=== PATIENT | female | born 1995 | race Caucasian/White ===

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

== ENCOUNTER 2017-04-27 00:26 | Emergency (ER) | payer OTHER ==
[~2017-04-27] VITALS: Ht 157.5 cm; Wt 52.6 kg
[~2017-04-27 00:26] MED LIST changes: +BENTYL10 M1 PO; +ZOFRAN ODT4 M1 PO
--- NOTE | 2017-04-27 00:55 | ED AMS/SEIZURE/WEAK/DIZZY ---
History of Present Illness General Chief Complaint: Dizziness Stated Complaint: DIZZINESS Source: patient, family Exam Limitations: no limitations Vital Signs & Intake/Output Vital Signs & Intake/Output Vital Signs Date Time Temp Pulse Resp B/P B/P Pulse O2 O2 Flow FiO2 Mean Ox Delivery Rate 04/27 0058 98.2 96 16 107/74 98 Room Air Room Air Allergies Coded Allergies: gluten (Intermediate, ABD CRAMPING 04/27/17) Reconcile Medications Dicyclomine Hydrochloride (Bentyl) 10 MG CAPSULE 1 CAP PO TID PRN SPASM Omeprazole Magnesium (Prilosec Otc) 20 MG TABLET.DR 1 TAB PO DAILY stomach burning Ondansetron (Zofran Odt) 4 MG TAB.RAPDIS 1 TAB PO Q6 PRN NAUSEA Ondansetron (Zofran Odt) 4 MG TAB.RAPDIS 1 TAB SL TID PRN nausea Triage Nurses Notes Reviewed? yes Onset: Gradual Duration: hour(s): Timing: recent history Injury Environment: home Severity: mild, moderate Modifying Factors: Improves With: rest. Associated Symptoms: dizziness : No Patient currently breastfeeds: No HPI: 22 yo woman presents with dizziness, nausea, weakness that started this evening. Her mother shares that she had her wisdom teeth removed earlier today. She had been NPO since yesterday. The surgery was uneventful. She was unable to eat during the day. Per mom, "She would just pick at her food." She notes mild nausea, dizziness, weakness, and "not feeling well." She is able to open her mouth. She had had no vomiting, diarrhea, chest pain, fever, chills, dysuria. She is otherwise well. Past History Travel History Traveled to [place] past 21 day No Medical History Any Pertinent Medical History? see below for history Neurological: NONE EENT: NONE Cardiovascular: NONE Respiratory: SEASONAL ALLERGIES Gastrointestinal: NONE Hepatic: NONE Renal: NONE Musculoskeletal: NONE Psychiatric: NONE Endocrine: NONE Blood Disorders: ITP Cancer(s): NONE BACK JOINER/Reproductive: NONE History of MRSA: No History of VRE: No History of CDIFF: No Surgical History Surgical History: N Psychosocial History What is your primary language Turkish Tobacco Use: Never used ETOH Use: denies use Illicit Drug Use: denies illicit drug use Family History Family History, If Any: SISTER (PANIC ATTACKS). UNCLE (STAGE 4 COLN CANCER). Hx Contributory? No Review of Systems Review of Systems Constitutional: Reports: no symptoms. EENTM: Reports: no symptoms. Respiratory: Reports: no symptoms. Cardiovascular: Reports: no symptoms. GI: Reports: no symptoms. Genitourinary: Reports: no symptoms. Musculoskeletal: Reports: no symptoms. Skin: Reports: no symptoms. Neurological/Psychological: Reports: no symptoms. Hematologic/Endocrine: Reports: no symptoms. Immunologic/Allergic: Reports: no symptoms. All Other Systems: Reviewed and Negative Physical Exam Physical Exam General Appearance: well developed/nourished, mild distress Head: atraumatic, normal appearance Eyes: Bilateral: normal appearance. Ears, Nose, Throat: slightly dry mucosa, pt with pain in opening mouth, otherwise benign. oral surgical site difficulty to visualize. Neck: normal inspection, supple, full range of motion Respiratory: normal breath sounds, chest non-tender, no respiratory distress, quiet respiration, lungs clear Cardiovascular: regular rate/rhythm Gastrointestinal: mild mid epigastric tenderness to palpation Back: normal inspection Extremities: normal range of motion Neurologic/Psych: no motor/sensory deficits, awake, alert, oriented x 3 Core Measures ACS in differential dx? No CVA/TIA Diagnosis No Sepsis Present: No Sepsis Focused Exam Completed? No Progress Differential Diagnosis: dehydration vs other Plan of Care: Orders Procedure Date/time Status LIPASE 04/27 55 Complete HEPATIC FUNCTION PANEL 04/27 55 Complete HUMAN BETA HCG SCREEN 04/27 55 Complete CBC WITHOUT DIFFERENTIAL 04/27 55 Complete BASIC METABOLIC PANEL 04/27 55 Complete AMYLASE 04/27 55 Complete Laboratory Tests 04/27/17 0211: Anion Gap 12, Estimated GFR > 60, BUN/Creatinine Ratio 12.9, Glucose 102 H, Calcium 9.7, Total Bilirubin 2.5 H, Direct Bilirubin 0.4, AST 21, ALT 31, Alkaline Phosphatase 66, Total Protein 7.4, Albumin 4.5, Amylase 37, Lipase 67, Total Beta HCG NEGATIVE, CBC w Diff MAN DIFF ORDERED, RBC 4.83, MCV 85.4, MCH 29.4, RDW 12.2, MPV 8.4, Gran % 87.2 H, Lymphocytes % 7.7 L, Monocytes % 4.6, Eosinophils % 0.5, Basophils % 0, Absolute Granulocytes 12.8 H, Segmented Neutrophils 90 H, Band Neutrophils 1, Absolute Lymphocytes 1.1 L, Lymphocytes 5 L, Monocytes 4, Absolute Monocytes 0.7 H, Absolute Eosinophils 0.1, Absolute Basophils 0, Platelet Estimate ADEQUATE, Normocytic RBCs VERIFIED, Normochromic RBCs VERIFIED, PUBS MCHC 34.4 Initial ED EKG: none Departure Departure Disposition: HOME OR SELF CARE Condition: Stable Clinical Impression Primary Impression: Dehydration Secondary Impressions: Postoperative nausea Referrals: Min DELAROSA,Braden Meyer (PCP/Family) Departure Forms: Customer Survey General Discharge Information Prescriptions: Current Visit Scripts Ondansetron (Zofran Odt) 1 TAB SL TID PRN nausea #6 TAB Ref 1 Omeprazole Magnesium (Prilosec Otc) 1 TAB PO DAILY #30 TAB Comments 04/27/17, 3:25am... pt feeling better after supportive medications. discussed labs with patient. elevated wbc count noted. Pt safe for discharge.
[2017-04-27] MEDS ORDERED: PRILOSEC OTC20 M1 PO (00:59)
[2017-04-27] MEDS ORDERED: ZOFRAN ODT4 M1 SL (00:59)
[2017-04-27 02:21] LABS: ABSOLUTE BASOPHIL COUNT 0 /CUMM (0.0-0.2); ABSOLUTE EOSINOPHIL COUNT 0.1 /CUMM (0.0-0.7); ABSOLUTE GRANULOCYTE CT 12.8 /CUMM (1.4-6.5); ABSOLUTE LYMPH COUNT 1.1 /CUMM (1.2-3.4); BASOPHIL % 0 % (0.0-2.0); EOSINOPHIL % 0.5 % (0-5); HEMATOCRIT 41.3 % (37-47); MEAN PLATELET VOLUME 8.4 FL (7.4-10.4)
[2017-04-27 02:24] LABS: ABSOLUTE MONOCYTE COUNT 0.7 /CUMM (0.10-0.60); MEAN CORPUSCULAR HGB 29.4 PG (27.0-31.0); MEAN CORPUSCULAR HGB CONC 34.4 G/DL (33.0-37.0); MEAN CORPUSCULAR VOLUME 85.4 FL (81.0-99.0); PLATELET COUNT 170 /CUMM (130-400); RBC DISTRIBUTION WIDTH 12.2 % (11.5-14.5); RED BLOOD CELL CT 4.83 /CUMM (4.20-5.40); WHITE BLOOD CELL COUNT 14.7 /CUMM (4.8-10.8)
[2017-04-27 02:33] LABS: GRANULOCYTE % 87.2 % (42.2-75.2)
[2017-04-27 03:33] VITALS: BP 98/55
== END 2017-04-27 03:35 ==
LOC: ERH 00:26
PROVIDERS: Pediatrics
DX: E86.0 Dehydration (principal); R11.0 Nausea
CPT/HCPCS: 96374; 96375; J1885; J2405